=== PATIENT | male | born 1980 | race Caucasian/White ===

== ENCOUNTER 2018-04-30 01:44 | Emergency (ER) | payer OTHER ==
[2018-04-30 02:08] VITALS: BP 140/90; PULSE 94; TEMP 97.8; BMI 26.1
--- NOTE | 2018-04-30 03:02 | PDOC ---
History of Present Illness - General Chief Complaint: Non EmpBld/Body Flud Exposure Stated Complaint: R/O EXPOSURE, YFD Time Seen by Provider: 04/30/18 02:16 - History of Present Illness Initial Comments: 04/30/18 02:55 The patient is a 37 year old male, with a significant past medical history of eczema, who presents to the emergency department s/p blood exposure. 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 The blood was on his arms for approximately 15 minutes. He is unaware if the patient is HIV/Hep B positive. Patient notes he has eczematous skin diffusely across his forearms where he noted some of the blood was. He was not wearing a mask at the time of the exposure but does not think anything got into his eyes. Pt reports his vaccines are up today, including Hep B. He denies ingesting any blood. He denies any accidental needle sticking. He has been in his [facility]. He denies any recent fevers, chills, headache or dizziness. He denies any recent nausea, vomit, diarrhea or constipation. He denies any recent chest pain or shortness of breath. He denies any recent dysuria, frequency, urgency or hematuria. Allergies: NKDA Past surgical history: None reported. Social History: Nonsmoker. Denies EtOH use and recreational drug use. Past History - Past Medical History Allergies/Adverse Reactions: Allergies Allergy/AdvReac Type Severity Reaction Status Date / Time No Known Allergies Allergy Verified 11/06/11 12:18 COPD: No - Suicide/Smoking/Psychosocial Hx Smoking Status: No Smoking History: Never smoked Have you smoked in the past 12 months: No Number of Cigarettes Smoked Daily: 0 Information on smoking cessation initiated: No Hx Alcohol Use: No Drug/Substance Use Hx: No Substance Use Type: None Review of Systems - Review of Systems Comments:: 04/30/18 02:58 "GENERAL/CONSTITUTIONAL: No fever or chills. No weakness. HEAD, EYES, EARS, NOSE AND THROAT: No change in vision. No ear pain or discharge. No sore throat. GASTROINTESTINAL: No nausea, vomiting, diarrhea or constipation. GENITOURINARY: No dysuria, frequency, or change in urination. CARDIOVASCULAR: No chest pain or shortness of breath. RESPIRATORY: No cough, wheezing, or hemoptysis. MUSCULOSKELETAL: No joint or muscle swelling or pain. No neck or back pain. SKIN: No rash NEUROLOGIC: No headache, vertigo, loss of consciousness, or change in strength/ sensation. ENDOCRINE: No increased thirst. No abnormal weight change. HEMATOLOGIC/LYMPHATIC: No anemia, easy bleeding, or history of blood clots. ALLERGIC/IMMUNOLOGIC: No hives or skin allergy." *Physical Exam - Vital Signs Last Vital Signs Temp Pulse Resp BP Pulse Ox 97.8 F 94 H 17 140/90 95 04/30/18 01:45 04/30/18 01:45 04/30/18 01:45 04/30/18 01:45 04/30/18 01:45 - Physical Exam Comments: 04/30/18 02:59 GENERAL: Awake, alert, and fully oriented, in no acute distress HEAD: No signs of trauma EYES: PERRLA, EOMI, sclera anicteric, conjunctiva clear ENT: Oropharynx clear without exudates. Moist mucosa NECK: Normal ROM, supple LUNGS: Breath sounds equal, clear to auscultation bilaterally. No wheezes, and no crackles HEART: Regular rate and rhythm, normal S1 and S2, no murmurs, rubs or gallops ABDOMEN: Soft, nontender, normoactive bowel sounds. No guarding, no rebound. No masses EXTREMITIES: Normal range of motion, no edema. No clubbing or cyanosis. No cords , erythema, or tenderness BACK: No midline spinal tenderness in cervical/thoracic/lumbar region NEUROLOGICAL: Normal speech, cranial nerves intact, 5/5 strength in all 4 extremities, normal sensation to light touch in all 4 extremities, normal gait SKIN: dry, scaly erythematous plaques over b/l arms and hands ED Treatment Course - LABORATORY CBC & Chemistry Diagram: 04/30/18 02:50 04/30/18 02:50 Medical Decision Making - Medical Decision Making 04/30/18 03:02 37yo M sandra FD presents to the ED after ~15 blood exposure over arms where he has eczematous patches. Given compromised skin integrity, and longer duration blood exposure with unknown source, recommended PEP basic regimen. Pt prefers to hold off on PEP for now while they try to figure out source pt's HIV/ Hep B status. Will check pt's BL labs and reassess. 04/30/18 04:02 HIV neg BAsic labs wnl Hep panel pending Call back order placed Pt to follow up with occupational health today for f/u on Hep panel, and also to ensure he is vaccinated against HBV Despite my recommendation of PEP given eczema, pt declines and prefers to f/u with occupational later today Pt well appearing, req DC home I discussed the physical exam findings, ancillary test results and final diagnoses with the patient. I answered all of the patient's questions. The patient was satisfied with the care received and felt comfortable with the discharge plan and treatment plan. The patient will call their primary care physician within 24 hours to arrange follow-up and will return to the Emergency Department with any new, persistent or worsening symptoms. *DC/Admit/Observation/Transfer Diagnosis at time of Disposition: Occupational exposure in workplace - Discharge Dispostion Disposition: HOME Condition at time of disposition: Stable Decision to Admit order: No - Referrals - Patient Instructions Printed Discharge Instructions: How to Handle Body Fluid Exposure -- Non- Healthcare Worker (At Home, Caregi Additional Instructions: As discussed, follow up with occupational health later today. Make sure you are vaccinated against hepatitis B. If your labs or medical records show that you are not, you may need vaccination to protect you against damari hepatitis B. Discuss this with occupational health. Also keep in mind that we recommend prophylaxis against HIV and while you decline for now, you can still start the prophylaxis today when you see occupational health. Return to the emergency department if you have any new, worsening or concerning symptoms. - Post Discharge Activity Forms/Work/School Notes: Back to Work - Attestations Physician Attestion: 04/30/18 04:09 I, Dr. Rene Vincent MD, attest that this document has been prepared under my direction and personally reviewed by me in its entirety. I further attest, that it accurately reflects all work, treatment, procedures and medical decision -making performed by me.
[2018-04-30 03:37] LABS: BASO % 0.7 % (0-2.0); EOS % 1.6 % (0-4.5); HEMATOCRIT 40.1 % (35.4-49); HEMOGLOBIN 14.1 GM/dL (11.7-16.9); MCH 29.8 pg (25.7-33.7); MCHC 35.2 g/dl (32.0-35.9); MEAN CELL VOLUME 84.7 fl (80-96); MEAN PLT VOLUME 8.1 fl (7.5-11.1); MONO % 8.1 % (3.8-10.2); NEUT % 71.6 % (42.8-82.8); PLATELET COUNT 276 K/MM3 (134-434); RBC 4.73 M/mm3 (4.00-5.60); RDW 12.8 % (11.9-15.9); WHITE BLOOD COUNT 9.6 K/mm3 (4.0-10.0)
[2018-04-30 03:40] LABS: ALBUMIN 4.5 g/dl (3.4-5.0); ALK PHOS 90 U/L (45-117); ANION GAP 8 MMOL/L (8-16); BILIRUBIN,TOTAL 0.4 mg/dL (0.2-1); BLOOD UREA NITROGEN 13 mg/dL (7-18); CALCIUM 9.2 mg/dL (8.5-10.1); CHLORIDE 104 mmol/L (98-107); CHOLESTEROL 208 mg/dL (50-200); CO2 26 mmol/L (21-32); GAMMA GLUTAMYL TRANSPEPTIDASE 30 U/L (5-85); GLUCOSE,RANDOM 94 mg/dL (74-106); LDH 181 U/L (87-246); PHOSPHOROUS 4.1 mg/dL (2.5-4.9); SGOT/AST 27 U/L (15-37); SGPT/ALT 35 U/L (13-61); SODIUM 138 mmol/L (136-145); TOT PROT 7.9 g/dl (6.4-8.2); TRIGLYCERIDES 86 mg/dL (0-150); URIC ACID 3.6 mg/dL (2.6-7.2)
[2018-04-30] MEDS ORDERED: DIPHTH,PERTUSS(ACELL),TET 0.5 ML DISP.SYRIN IM ONE (04:15)
[2018-05-01 06:07] LABS: HBsAG SCREEN Negative (Negative)
== END 2018-04-30 04:12 | disposition home or self-care (01) ==
LOC: JER 01:44
PROC: 3E0234Z Introduction of Serum, Toxoid and Vaccine into Muscle, Percutaneous Approach (ICD-10-PCS; principal; 2018-04-30)
DX: Z77.21 Contact with and (suspected) exposure to potentially hazardous body fluids (principal); X58.XXXA Exposure to other specified factors, initial encounter; Y93.89 Activity, other specified; Y92.89 Other specified places as the place of occurrence of the external cause; Y99.0 Civilian activity done for income or pay
CPT/HCPCS: 36415; 80053; 82465; 82977; 83615; 84100; 84478; 84550; 85025; 86317; 86706; 86803; 87340; 87389; 90715; 99282-25

== ENCOUNTER 2018-04-30 15:13 | Emergency (ER) | payer OTHER ==
[2018-04-30 15:18] VITALS: BP 147/94; PULSE 78; TEMP 98.9; BMI 26.4
--- NOTE | 2018-04-30 15:18 | PDOC ---
Rapid Medical Evaluation Chief Complaint: Blood/Body Fluid Exposure SJR Time Seen by Provider: 04/30/18 15:17 Medical Evaluation: Allergies Allergy/AdvReac Type Severity Reaction Status Date / Time No Known Allergies Allergy Verified 11/06/11 12:18 04/30/18 15:18 The patient presents with: here for PEP tx On brief exam: none the patient was ordered for: none The patient to proceed to the emergency department Discharge Disposition - Diagnosis Occupational exposure in workplace - Referrals - Patient Instructions
[2018-04-30] MEDS ORDERED: HIV POST EXPOSURE PROPHYLAXIS KIT NR ONE (15:40)
[2018-04-30] MEDS ORDERED: HIV POST EXPOSURE PROPHYLAXIS KIT PO ONE (15:44)
--- NOTE | 2018-04-30 15:44 | PDOC ---
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 Blood was bladder on the area of eczema of his left arm he refused therapy at that time now he would like postexposure prophylactic therapy Past History - Past Medical History Allergies/Adverse Reactions: Allergies Allergy/AdvReac Type Severity Reaction Status Date / Time No Known Allergies Allergy Verified 04/30/18 15:18 Home Medications: Ambulatory Orders NK [No Known Home Medication] 04/30/18 COPD: No - Suicide/Smoking/Psychosocial Hx Smoking Status: No Smoking History: Never smoked Have you smoked in the past 12 months: No Number of Cigarettes Smoked Daily: 0 Information on smoking cessation initiated: No Hx Alcohol Use: No Drug/Substance Use Hx: No Substance Use Type: None Review of Systems - Review of Systems Integumentary: Yes: See HPI *Physical Exam - Vital Signs Last Vital Signs Temp Pulse Resp BP Pulse Ox 98.9 F 78 19 147/94 99 04/30/18 15:16 04/30/18 15:16 04/30/18 15:16 04/30/18 15:16 04/30/18 15:16 - Physical Exam Comments: 04/30/18 15:42 HEAD: NC/AT NEUROLOGIC: No gross sensory or motor deficits SKIN: Normal color and temperature no lesions or rashes 04/30/18 15:42 *DC/Admit/Observation/Transfer Diagnosis at time of Disposition: Occupational exposure in workplace - Discharge Dispostion Disposition: HOME Condition at time of disposition: Stable Decision to Admit order: No - Referrals Referrals: Rekha Perla [Primary Care Provider] - - Patient Instructions Printed Discharge Instructions: How to Handle Body Fluid Exposure -- Healthcare Worker Additional Instructions: Please follow-up with your primary care doctor for remainder of your treatment and follow-up with the laboratory results on the source patient return to the ER should you need any further assistance - Post Discharge Activity Forms/Work/School Notes: Back to Work
== END 2018-04-30 15:49 | disposition home or self-care (01) ==
LOC: JERFT 15:13
DX: Z77.21 Contact with and (suspected) exposure to potentially hazardous body fluids (principal); X58.XXXA Exposure to other specified factors, initial encounter; Y93.89 Activity, other specified; Y92.89 Other specified places as the place of occurrence of the external cause; Y99.0 Civilian activity done for income or pay
CPT/HCPCS: 99281-25

== ENCOUNTER 2020-11-13 20:46 | Emergency (ER) | payer OTHER ==
[2020-11-13 21:05] VITALS: BP 130/81; PULSE 76; TEMP 97.6; BMI 24.4
[2020-11-13] MEDS ORDERED: IBUPROFEN 600 MG TABLET (FP) PO ONE ×2 (21:59→22:10)
== END 2020-11-13 22:33 | disposition home or self-care (01) ==
LOC: JER 20:46
DX: S43.401A Unspecified sprain of right shoulder joint, initial encounter (principal)
CPT/HCPCS: 99283-25

== ENCOUNTER 2022-05-27 09:27 | Emergency (ER) | payer OTHER ==
[2022-05-27 09:42] VITALS: BP 132/76; PULSE 62; RESP 18; TEMP 97; BMI 24.0
== END 2022-05-27 11:22 | disposition home or self-care (01) ==
LOC: JERFT 09:27
DX: M25.561 Pain in right knee (principal)
CPT/HCPCS: 99283-25

== ENCOUNTER 2023-02-26 13:38 | Emergency (ER) | payer OTHER ==
[2023-02-26 13:49] VITALS: BP 121/80; PULSE 72; RESP 16; TEMP 98.4; BMI 24.4
== END 2023-02-26 16:50 | disposition home or self-care (01) ==
LOC: JER 13:38
DX: T63.441A Toxic effect of venom of bees, accidental (unintentional), initial encounter (principal); R22.33 Localized swelling, mass and lump, upper limb, bilateral; T78.40XA Allergy, unspecified, initial encounter
CPT/HCPCS: 99283-25